=== PATIENT | female | born 1960 | race Caucasian/White ===

== ENCOUNTER 2021-04-23 10:30 | Observation (INO) ==
[2021-04-23 11:26] LABS: Basophils % 0.2 %; Hematocrit 32.2 % (35.3-44.9); Immature Granulocytes % 1.1 % (0-4); Lymphocytes # 0.6 K/mcL (0.6-4.6); Lymphocytes % 3.3 %; Mean Corpuscular HGB Conc 34.2 g/dL (31.6-35.5); Mean Corpuscular Hemoglobin 31.4 pg (28.0-33.3); Mean Platelet Volume 8.1 fL (9.4-12.4); Monocytes # 0.8 K/mcL (0.0-1.3); Monocytes % 4.2 %; Neutrophils # 17.7 K/mcL (1.6-8.9); Platelet Count 455 K/mcL (140-400); Red Cell Distribution Width 12.2 % (11.5-14.5); Segmented Neutrophils % 91.2 %; White Blood Count 19.4 K/mcL (4.3-11.1)
[2021-04-23 12:05] LABS: Alanine Aminotransferase 16 Units/L (7-52); Albumin 3.7 g/dL (3.5-5.7); Albumin/Globulin Ratio 1.9 (1.1-2.2); Alkaline Phosphatase 58 Units/L (34-104); Aspartate Amino Transferase 18 Units/L (13-39); BUN/Creatinine Ratio 18 (6-26); Bilirubin,Direct 0.1 mg/dL (0.0-0.2); Bilirubin,Indirect 0.3 mg/dL (0.0-1.0); Bilirubin,Total 0.4 mg/dL (0.3-1.0); Blood Urea Nitrogen 8 mg/dL (6-20); Calcium 8.9 mg/dL (8.6-10.3); Carbon Dioxide 26 mEq/L (23-29); Chloride 97 mEq/L (98-107); Glucose 130 mg/dL (70-105); Lipase 14 Units/L (11-82); Osmolality,Calculated 272 (280-300); Potassium 3.5 mEq/L (3.5-5.1); Sodium 131 mEq/L (136-145); Total Protein 5.7 g/dL (6.4-8.9); Troponin I < 0.03 ng/mL (< 0.04); eGFR For African Americans > 60 (> 60); eGFR For Non-African Americans > 60 (> 60)
[2021-04-23] MEDS ORDERED: Isovue-370 500 ML BOTTLE IVP ONE (12:21)
[2021-04-23] MEDS ORDERED: 0.9 % Sodium Chloride 500 ML IVC ONE (12:35)
[2021-04-23 14:11] LABS: Bilirubin,Urine Negative (Negative); Blood,Urine Negative (Negative); Clarity,Urine Clear (Clear); Color,Urine Yellow (Yellow); Glucose,Urine (UA) Normal (Normal); Ketones,Urine Negative (Negative); Leukocyte Esterase,Urine Negative (Negative); Nitrite,Urine Negative (Negative); Protein,Urine 30 mg/dL (Neg-Trace); Specific Gravity,Urine > 1.030 (1.010-1.025); Squamous Epithelial Cell,Urine Few per hpf (None-Few); Urobilinogen,Urine Normal (Normal); WBC,Urine 0-3 per hpf (0-3)
[2021-04-23] MEDS ORDERED: Naloxone 0.4 MG/ML INJ IVP PRN (14:12)
[2021-04-23] MEDS ORDERED: Melatonin 3 MG TABLET PO PRN (14:12)
[2021-04-23 14:27] LABS: Hematocrit 32.2 % (35.3-44.9); Hemoglobin 10.5 g/dL (11.5-15.4)
[2021-04-23 14:33] LABS: INR 1.1; Prothrombin Time 12.6 Seconds (9.4-12.1)
[2021-04-23] MEDS: Ipratropium/Albuterol Neb 3 ML IH SCH ×2 (16:32→21:54)
[2021-04-23] MEDS ORDERED: SODIUM CHLORIDE/NAHCO3/KCL/PEG 4,000 ML SOLN.RECON PO ONE (17:00)
[2021-04-23] MEDS: 0.9 % Sodium Chloride 1,000 ML IVC SCH (17:35)
[2021-04-23] MEDS: Pantoprazole 40 MG VIAL IVP SCH (17:35)
[2021-04-23] MEDS ORDERED: Fluticasone Propionate Nasal 50 MCG/SPRAY BOTTLE NS PRN (17:46)
[2021-04-23] MEDS ORDERED: Nicotine 21 MG PATCH.TD24 TD ONE (18:40)
[2021-04-23] MEDS: Gabapentin 400 MG CAPSULE PO SCH (20:01)
[2021-04-23] MEDS: Ondansetron 4 MG/2 ML VIAL IVP PRN (20:25)
[2021-04-23] MEDS: Budesonide/Formoterol 160/4.5 1 PUFF INH IH SCH (21:54)
[2021-04-24] MEDS: Ipratropium/Albuterol Neb 3 ML IH SCH ×4 (03:34→22:46)
[2021-04-24] MEDS: Ondansetron 4 MG/2 ML VIAL IVP PRN (04:54)
[2021-04-24 06:57] LABS: Alanine Aminotransferase 14 Units/L (7-52); Albumin 3.1 g/dL (3.5-5.7); Albumin/Globulin Ratio 2.1 (1.1-2.2); Alkaline Phosphatase 49 Units/L (34-104); Aspartate Amino Transferase 19 Units/L (13-39); BUN/Creatinine Ratio 17 (6-26); Bilirubin,Total 0.4 mg/dL (0.3-1.0); Blood Urea Nitrogen 7 mg/dL (6-20); Calcium 7.8 mg/dL (8.6-10.3); Carbon Dioxide 25 mEq/L (23-29); Chloride 100 mEq/L (98-107); Chol/HDL Ratio 2.7 (0-4.9); Cholesterol 128 mg/dL (< 200); Globulin 1.5 g/dL (2.4-3.5); Glucose 72 mg/dL (70-105); HDL Cholesterol 48 mg/dL (40-59); LDL Cholesterol,Calculated 62 mg/dL (< 100); Magnesium 1.3 mg/dL (1.6-2.6); Osmolality,Calculated 273 (280-300); Phosphorous 2.5 mg/dL (2.7-4.5); Potassium 3.3 mEq/L (3.5-5.1); Sodium 133 mEq/L (136-145); Total Protein 4.6 g/dL (6.4-8.9); Triglycerides 92 mg/dL (< 150); eGFR For African Americans > 60 (> 60); eGFR For Non-African Americans > 60 (> 60)
[2021-04-24 07:06] LABS: INR 1.1; Prothrombin Time 12.8 Seconds (9.4-12.1)
[2021-04-24 07:18] LABS: Ferritin 67 ng/mL (10-120); Iron < 10 mcg/dL (50-170); Transferrin 203 mg/dL (203-362)
[2021-04-24 07:22] LABS: Folate > 22.3 ng/mL (3.0-16.0); Vitamin B12 636 pg/mL (250-1100)
[2021-04-24] MEDS ORDERED: Potassium Chloride 20 MEQ, Lidocaine 1% 2 ML in 0.9 % Sodium Chloride 250 ML IVPB ONE (09:00)
[2021-04-24] MEDS: Gabapentin 400 MG CAPSULE PO SCH ×3 (09:46→20:16)
[2021-04-24] MEDS: Pantoprazole 40 MG VIAL IVP SCH (09:46)
[2021-04-24] MEDS: Metoprolol XL (24 HR) Succ 50 MG TAB.ER.24H PO SCH (09:47)
[2021-04-24] MEDS: lisinopriL 20 MG TABLET PO SCH (09:48)
[2021-04-24] MEDS: amLODIPine 5 MG TABLET PO SCH (09:48)
[2021-04-24] MEDS: Nicotine 21 MG PATCH.TD24 TD SCH (09:48)
[2021-04-24 09:56] LABS: Basophils % 0.2 %; Eosinophils # 0.1 K/mcL (0.0-0.6); Eosinophils % 0.4 %; Hematocrit 28.2 % (35.3-44.9); Hemoglobin 9.4 g/dL (11.5-15.4); Immature Granulocytes % 0.8 % (0-4); Lymphocytes # 2.1 K/mcL (0.6-4.6); Lymphocytes % 11.2 %; Mean Corpuscular HGB Conc 33.3 g/dL (31.6-35.5); Mean Corpuscular Hemoglobin 31.9 pg (28.0-33.3); Mean Corpuscular Volume 95.6 fL (83.0-100.0); Mean Platelet Volume 8.4 fL (9.4-12.4); Monocytes # 1.7 K/mcL (0.0-1.3); Monocytes % 9.1 %; Neutrophils # 14.4 K/mcL (1.6-8.9); Platelet Count 394 K/mcL (140-400); Red Blood Count 2.95 M/mcL (3.82-4.97); Red Cell Distribution Width 12.2 % (11.5-14.5); Segmented Neutrophils % 78.3 %; White Blood Count 18.3 K/mcL (4.3-11.1)
[2021-04-24] MEDS: Tiotropium 10 INH DOSE IH SCH (10:19)
[2021-04-24] MEDS: Budesonide/Formoterol 160/4.5 1 PUFF INH IH SCH ×2 (10:19→22:46)
[2021-04-24] MEDS ORDERED: *HR* Propofol 500 MG/50 ML BOTTLE IVP ONE (14:18)
[2021-04-24] MEDS ORDERED: Lidocaine -MPF 2% 5 ML VIAL SQ ONE (14:18)
[2021-04-24] MEDS: 0.9 % Sodium Chloride 1,000 ML IVC SCH (22:35)
[2021-04-25 03:12] LABS: Basophils % 0.3 %; Eosinophils # 0.1 K/mcL (0.0-0.6); Eosinophils % 1.1 %; Hematocrit 27.3 % (35.3-44.9); Immature Granulocytes % 0.9 % (0-4); Lymphocytes # 1.9 K/mcL (0.6-4.6); Lymphocytes % 21.5 %; Mean Corpuscular Hemoglobin 31.5 pg (28.0-33.3); Mean Corpuscular Volume 95.5 fL (83.0-100.0); Mean Platelet Volume 8.2 fL (9.4-12.4); Monocytes # 1.1 K/mcL (0.0-1.3); Monocytes % 12.5 %; Neutrophils # 5.6 K/mcL (1.6-8.9); Platelet Count 395 K/mcL (140-400); Red Blood Count 2.86 M/mcL (3.82-4.97); Red Cell Distribution Width 12.2 % (11.5-14.5); Segmented Neutrophils % 63.7 %
[2021-04-25 03:13] LABS: White Blood Count 8.8 K/mcL (4.3-11.1)
[2021-04-25] MEDS: Ondansetron 4 MG/2 ML VIAL IVP PRN ×3 (03:15→20:33)
[2021-04-25] MEDS: Ipratropium/Albuterol Neb 3 ML IH SCH ×4 (03:25→22:04)
[2021-04-25 03:34] LABS: BUN/Creatinine Ratio 19 (6-26); Blood Urea Nitrogen 10 mg/dL (6-20); Calcium 7.7 mg/dL (8.6-10.3); Carbon Dioxide 26 mEq/L (23-29); Chloride 104 mEq/L (98-107); Glucose 112 mg/dL (70-105); Magnesium 1.9 mg/dL (1.6-2.6); Osmolality,Calculated 280 (280-300); Potassium 3.6 mEq/L (3.5-5.1); Sodium 135 mEq/L (136-145); eGFR For African Americans > 60 (> 60); eGFR For Non-African Americans > 60 (> 60)
[2021-04-25] MEDS: lisinopriL 20 MG TABLET PO SCH (08:10)
[2021-04-25] MEDS: Metoprolol XL (24 HR) Succ 50 MG TAB.ER.24H PO SCH (08:10)
[2021-04-25] MEDS: Nicotine 21 MG PATCH.TD24 TD SCH (08:11)
[2021-04-25] MEDS: Gabapentin 400 MG CAPSULE PO SCH ×3 (08:11→20:30)
[2021-04-25] MEDS: Pantoprazole 40 MG VIAL IVP SCH (08:12)
[2021-04-25] MEDS: amLODIPine 5 MG TABLET PO SCH (08:12)
[2021-04-25] MEDS: Budesonide/Formoterol 160/4.5 1 PUFF INH IH SCH ×2 (10:44→22:04)
[2021-04-25] MEDS: Tiotropium 10 INH DOSE IH SCH (10:46)
[2021-04-25] MEDS: 0.9 % Sodium Chloride 1,000 ML IVC SCH (11:43)
[2021-04-26 03:16] LABS: Basophils # 0.1 K/mcL (0.0-0.2); Basophils % 0.5 %; Eosinophils # 0.1 K/mcL (0.0-0.6); Eosinophils % 0.7 %; Hematocrit 28.4 % (35.3-44.9); Hemoglobin 9.4 g/dL (11.5-15.4); Immature Granulocytes % 1.2 % (0-4); Lymphocytes # 1.9 K/mcL (0.6-4.6); Lymphocytes % 14.6 %; Mean Corpuscular HGB Conc 33.1 g/dL (31.6-35.5); Mean Corpuscular Hemoglobin 31.4 pg (28.0-33.3); Mean Platelet Volume 8.5 fL (9.4-12.4); Monocytes # 1.5 K/mcL (0.0-1.3); Monocytes % 11.7 %; Neutrophils # 9.2 K/mcL (1.6-8.9); Platelet Count 448 K/mcL (140-400); Red Blood Count 2.99 M/mcL (3.82-4.97); Red Cell Distribution Width 12.3 % (11.5-14.5); Segmented Neutrophils % 71.3 %; White Blood Count 12.9 K/mcL (4.3-11.1)
[2021-04-26 03:37] LABS: BUN/Creatinine Ratio 14 (6-26); Blood Urea Nitrogen 7 mg/dL (6-20); Carbon Dioxide 22 mEq/L (23-29); Chloride 104 mEq/L (98-107); Glucose 121 mg/dL (70-105); Osmolality,Calculated 277 (280-300); Potassium 3.8 mEq/L (3.5-5.1); Sodium 134 mEq/L (136-145); eGFR For African Americans > 60 (> 60); eGFR For Non-African Americans > 60 (> 60)
[2021-04-26] MEDS: Ipratropium/Albuterol Neb 3 ML IH SCH ×4 (03:49→21:34)
[2021-04-26] MEDS: Nicotine 21 MG PATCH.TD24 TD SCH (07:51)
[2021-04-26] MEDS: Pantoprazole 40 MG VIAL IVP SCH (07:51)
[2021-04-26] MEDS: Metoprolol XL (24 HR) Succ 50 MG TAB.ER.24H PO SCH (07:53)
[2021-04-26] MEDS: amLODIPine 5 MG TABLET PO SCH (07:53)
[2021-04-26] MEDS: Gabapentin 400 MG CAPSULE PO SCH ×3 (07:53→20:07)
[2021-04-26] MEDS: lisinopriL 20 MG TABLET PO SCH (07:54)
[2021-04-26] MEDS: Ondansetron 4 MG/2 ML VIAL IVP PRN ×2 (07:54→16:05)
[2021-04-26] MEDS: Tiotropium 10 INH DOSE IH SCH (09:51)
[2021-04-26] MEDS: Budesonide/Formoterol 160/4.5 1 PUFF INH IH SCH ×2 (09:53→21:35)
[2021-04-27] MEDS: Ipratropium/Albuterol Neb 3 ML IH SCH ×3 (04:07→15:44)
[2021-04-27 06:51] VITALS: O2SAT 96
[2021-04-27 07:52] VITALS: PULSE 88
[2021-04-27 07:56] LABS: Basophils # 0.1 K/mcL (0.0-0.2); Basophils % 0.5 %; Eosinophils # 0.2 K/mcL (0.0-0.6); Eosinophils % 1.4 %; Hematocrit 30.5 % (35.3-44.9); Hemoglobin 10.1 g/dL (11.5-15.4); Immature Granulocytes % 0.9 % (0-4); Lymphocytes # 1.4 K/mcL (0.6-4.6); Lymphocytes % 12.4 %; Mean Corpuscular HGB Conc 33.1 g/dL (31.6-35.5); Mean Corpuscular Hemoglobin 31.4 pg (28.0-33.3); Mean Corpuscular Volume 94.7 fL (83.0-100.0); Mean Platelet Volume 9.3 fL (9.4-12.4); Monocytes # 1.3 K/mcL (0.0-1.3); Monocytes % 11.7 %; Platelet Count 321 K/mcL (140-400); Red Blood Count 3.22 M/mcL (3.82-4.97); Red Cell Distribution Width 11.9 % (11.5-14.5); Segmented Neutrophils % 73.1 %
[2021-04-27 08:35] LABS: BUN/Creatinine Ratio 11 (6-26); Blood Urea Nitrogen 4 mg/dL (6-20); Calcium 7.9 mg/dL (8.6-10.3); Carbon Dioxide 20 mEq/L (23-29); Chloride 100 mEq/L (98-107); Glucose 78 mg/dL (70-105); Magnesium 1.6 mg/dL (1.6-2.6); Osmolality,Calculated 266 (280-300); Potassium 3.9 mEq/L (3.5-5.1); Sodium 130 mEq/L (136-145); eGFR For African Americans > 60 (> 60); eGFR For Non-African Americans > 60 (> 60)
[2021-04-27] MEDS ORDERED: Aspirin Enteric Coated 81 MG Tablet PO SCH (09:00)
[2021-04-27] MEDS ORDERED: NON-FORMULARY MEDICATION 1 EACH EACH (Fluticasone/Vilanterol [Breo Ellipta 100-25 Mcg Inh] PO SCH (09:00)
[2021-04-27] MEDS ORDERED: Nicotine 21 MG PATCH.TD24 TD SCH (09:00)
[2021-04-27] MEDS: Nicotine 21 MG PATCH.TD24 TD SCH (09:06)
[2021-04-27] MEDS: lisinopriL 20 MG TABLET PO SCH (09:07)
[2021-04-27] MEDS: Gabapentin 400 MG CAPSULE PO SCH ×2 (09:07→11:03)
[2021-04-27] MEDS: amLODIPine 5 MG TABLET PO SCH (09:07)
[2021-04-27] MEDS: Metoprolol XL (24 HR) Succ 50 MG TAB.ER.24H PO SCH (09:08)
[2021-04-27] MEDS: Tiotropium 10 INH DOSE IH SCH (10:16)
[2021-04-27] MEDS: Budesonide/Formoterol 160/4.5 1 PUFF INH IH SCH (10:17)
[2021-04-27 10:57] VITALS: BP 123/72; TEMP 98.8
[2021-04-27] MEDS ORDERED: Magnesium Oxide 400 MG TABLET PO ONE (15:15)
[2021-04-28] MEDS ORDERED: Magnesium Oxide 400 MG TABLET PO ONE (15:15)
== END 2021-04-27 16:51 | disposition home or self-care (01) ==
LOC: EMEROOARM 10:30 → 3ANU 10:30 → SUATTDRO 14:17 → 3ANU 15:28
PROVIDERS: ADMIT Internal Medicine; ATTEND General Practice
PROC: ENDOCBX (2021-04-24 14:40)